=== PATIENT | female | born 1935 | race Caucasian/White ===

== ENCOUNTER 2024-05-18 15:06 | Inpatient (IN) | payer MEDICARE, MEDICAID ==
[~2024-05-18] VITALS: Ht 157.5 cm; Wt 72.0 kg
[2024-05-18 16:54] LABS: BASOPHILS % (AUTO) 0.5 % (0-1); EOSINOPHILS # (AUTO) 0.1 X10'3 (0-0.9); EOSINOPHILS % (AUTO) 1.7 % (0-6); HEMATOCRIT 34.2 % (35.0-45.0); HEMOGLOBIN 11.7 g/dl (12.0-16.0); LYMPHOCYTES # (AUTO) 1.1 X10'3 (1.1-4.8); LYMPHOCYTES % (AUTO) 16.2 % (21-51); MEAN CORPUSCULAR HEMOGLOBIN 32.3 PG (27.0-31.0); MEAN CORPUSCULAR HGB CONC 34.1 g/dL (33.0-36.5); MEAN CORPUSCULAR VOLUME 94.8 FL (78-98); MEAN PLATELET VOLUME 7.7 FL (7.4-10.4); MONOCYTES # (AUTO) 0.5 X10'3 (0-0.9); MONOCYTES % (AUTO) 7.1 % (2-12); NEUTROPHILS # (AUTO) 5.3 X10'3 (1.8-7.7); NEUTROPHILS % (AUTO) 74.5 % (42-75); PLATELET COUNT 225 X10'3 (140-440); RED BLOOD COUNT 3.61 X10'6 (4.20-5.60); RED CELL DISTRIBUTION WIDTH 14.5 % (11.5-14.5); WHITE BLOOD COUNT 7.1 X10'3 (4.5-11.0)
[2024-05-18 17:11] LABS: ALANINE AMINOTRANSFERASE 19 U/L (12-78); ALBUMIN 3.3 G/DL (3.4-5.0); ALBUMIN/GLOBULIN RATIO 0.9 (1.1-1.5); ALKALINE PHOSPHATASE 101 IU/L (46-116); ANION GAP 9 (8-16); ASPARTATE AMINO TRANSFERASE 18 U/L (10-37); BILIRUBIN,TOTAL 0.6 MG/DL (0.1-1.0); BLOOD UREA NITROGEN 24 MG/DL (7-18); BUN/CREATININE RATIO 22.4 (10.0-20.0); CHLORIDE 105 MMOL/L (99-107); CREATININE 1.07 MG/DL (0.40-0.90); GLUCOSE 138 MG/DL (70-104); POTASSIUM 4.1 MMOL/L (3.5-5.1); SODIUM 139 MMOL/L (135-145); TOTAL CARBON DIOXIDE 25.1 MMOL/L (24-32); TOTAL PROTEIN 6.8 G/DL (6.4-8.2); eCRCL 28 ML/MIN; eGFR 48 ML/MIN
[2024-05-18 17:18] LABS: MAGNESIUM 1.9 MG/DL (1.5-2.4); PRO BRAIN NATRIURETIC PEPTIDE 467 PG/ML (0-450)
[2024-05-18 18:06] LABS: BILIRUBIN,URINE NEGATIVE (Neg); CLARITY,URINE CLOUDY (Clear); COLOR,URINE STRAW (Yellow); GLUCOSE, URINE NEGATIVE (Neg); KETONES,URINE NEGATIVE (Neg); LEUKOCYTE ESTERASE ,URINE SMALL (Neg); NITRITES, URINE NEGATIVE (Neg); OCCULT BLOOD,URINE NEGATIVE (Neg); PROTEIN,URINE NEGATIVE (Neg); UROBILINOGEN,URINE 0.2 E.U/dL (0.2-1.0)
[2024-05-18 18:12] LABS: UA COLLECTION TYPE NON-SPECIFIED
[2024-05-18 18:13] LABS: BACTERIA,URINE 4+ /HPF (Neg); MUCUS STRANDS MODERATE /LPF (Neg); RBC,URINE 0-2 /HPF (0-2); SQUAMOUS EPITHELIAL CELL,UR MANY /LPF (FEW)
[2024-05-18] MEDS: CefTRIAXone 2gm/D5W 50ml BAG 50 ML IV ONE (19:16)
[2024-05-18] MEDS: azithromycin/NS 500mg/250ml 250 ML IV ONE (19:16)
[2024-05-18] MEDS ORDERED: magnesium Cl slow-release 64mg tablet PO PRN (22:10)
[2024-05-18] MEDS ORDERED: ipratropium/albuterol 3ml nebule NEB PRN (22:10)
[2024-05-18] MEDS ORDERED: ondansetron/PF 4mg/2ml inj IV PRN (22:10)
[2024-05-18] MEDS ORDERED: magnesium sulf-water 2g/50mL 50 ML IV PRN (22:10)
[2024-05-18] MEDS ORDERED: magnesium sulf-water 4G/100mL 100 ML IV PRN (22:10)
[2024-05-18] MEDS ORDERED: potassium Cl 40MEQ/1/2NS 520ml 520 ML IV PRN (22:10)
[2024-05-18] MEDS ORDERED: acetaminophen 325mg tablet PO PRN (22:10)
[2024-05-18] MEDS ORDERED: mag hydrox/Alum hydrox/simeth 30ml oral suspension PO PRN (22:10)
[2024-05-18] MEDS ORDERED: magnesium hydroxide 30ml (MOM) UD suspension PO PRN (22:10)
[2024-05-18] MEDS ORDERED: potassium Cl 20 mEq SR tablet PO PRN ×2 (22:10)
[2024-05-18] MEDS ORDERED: ANAS1TAB10 (22:18)
[2024-05-18] MEDS ORDERED: OXYB5TAB21 PO (22:18)
[2024-05-18] MEDS: ipratropium/albuterol 3ml nebule NEB SCH (22:55)
[2024-05-18 22:57] VITALS: PULSE 59; RESP 17; O2SAT 99
[2024-05-18 23:03] VITALS: PULSE 64; RESP 16
[2024-05-18 23:30] VITALS: BP 135/47; PULSE 67; RESP 18; RESP 23; TEMP 97.9; O2SAT 95; O2SAT 97
[2024-05-19] VITALS (17 sets, daily range): BP systolic 105–114; BP diastolic 51–86; PULSE 56–98; RESP 16–20; TEMP 97.4–98.3; O2SAT 94–100
[2024-05-19] MEDS: methylPREDNISolone sod succ 125mg/2ml vial IV SCH (00:33)
[2024-05-19] MEDS: docusate sod 100mg capsule PO SCH (08:00)
[2024-05-19] MEDS: K and/or MAG REPLACEMENT MC SCH (08:00)
[2024-05-19 08:01] LABS: BASOPHILS % (AUTO) 0.1 % (0-1); EOSINOPHILS % (AUTO) 0.1 % (0-6); HEMATOCRIT 34.5 % (35.0-45.0); HEMOGLOBIN 11.6 g/dl (12.0-16.0); LYMPHOCYTES # (AUTO) 0.5 X10'3 (1.1-4.8); LYMPHOCYTES % (AUTO) 11.2 % (21-51); MEAN CORPUSCULAR HGB CONC 33.6 g/dL (33.0-36.5); MEAN CORPUSCULAR VOLUME 95.3 FL (78-98); MEAN PLATELET VOLUME 7.7 FL (7.4-10.4); MONOCYTES % (AUTO) 0.8 % (2-12); NEUTROPHILS # (AUTO) 4.2 X10'3 (1.8-7.7); NEUTROPHILS % (AUTO) 87.8 % (42-75); PLATELET COUNT 215 X10'3 (140-440); RED BLOOD COUNT 3.62 X10'6 (4.20-5.60); RED CELL DISTRIBUTION WIDTH 14.5 % (11.5-14.5); WHITE BLOOD COUNT 4.8 X10'3 (4.5-11.0)
[2024-05-19 08:27] LABS: ALANINE AMINOTRANSFERASE 16 U/L (12-78); ALBUMIN 3.2 G/DL (3.4-5.0); ALBUMIN/GLOBULIN RATIO 0.8 (1.1-1.5); ALKALINE PHOSPHATASE 102 IU/L (46-116); ANION GAP 11 (8-16); ASPARTATE AMINO TRANSFERASE 18 U/L (10-37); BILIRUBIN,TOTAL 0.4 MG/DL (0.1-1.0); BLOOD UREA NITROGEN 26 MG/DL (7-18); BUN/CREATININE RATIO 24.1 (10.0-20.0); CALCIUM 8.7 MG/DL (8.5-10.1); CHLORIDE 105 MMOL/L (99-107); CREATININE 1.08 MG/DL (0.40-0.90); GLUCOSE 215 MG/DL (70-104); POTASSIUM 4.5 MMOL/L (3.5-5.1); SODIUM 140 MMOL/L (135-145); TOTAL CARBON DIOXIDE 23.8 MMOL/L (24-32); TOTAL PROTEIN 7.2 G/DL (6.4-8.2); eCRCL 28 ML/MIN; eGFR 48 ML/MIN
[2024-05-19] MEDS: CefTRIAXone/D5W-Rocephin 1gm 50 ML IV SCH (09:25)
[2024-05-19] MEDS: oxybutynin 5mg tablet PO SCH (09:27)
[2024-05-19] MEDS: heparin, porcine 5000 units/ml vial SQ SCH (09:27)
[2024-05-19] MEDS: azithromycin/NS 500mg/250ml 250 ML IV SCH (10:41)
[2024-05-19] MEDS: furosemide 40mg/4ml inj IV ONE (10:43)
[2024-05-19] MEDS: anastrozole 1 MG tablet PO SCH (11:09)
[2024-05-19] MEDS ORDERED: albuterol 1.25 MG/3 ML (1/2 strength) nebule NEB PRN (19:15)
[2024-05-19] MEDS: furosemide 20 MG/2 ML vial IV SCH (21:57)
[2024-05-19] MEDS: guaiFENesin ER 600mg tablet PO SCH (21:57)
[2024-05-20] VITALS (14 sets, daily range): BP systolic 104–122; BP diastolic 40–84; PULSE 68–97; RESP 16–20; TEMP 97.5–98.7; O2SAT 93–100
[2024-05-20 05:39] LABS: BASOPHILS % (AUTO) 0.3 % (0-1); EOSINOPHILS % (AUTO) 0 % (0-6); HEMATOCRIT 32.5 % (35.0-45.0); HEMOGLOBIN 10.9 g/dl (12.0-16.0); LYMPHOCYTES # (AUTO) 0.4 X10'3 (1.1-4.8); LYMPHOCYTES % (AUTO) 4.3 % (21-51); MEAN CORPUSCULAR HEMOGLOBIN 32.1 PG (27.0-31.0); MEAN CORPUSCULAR HGB CONC 33.5 g/dL (33.0-36.5); MEAN CORPUSCULAR VOLUME 95.6 FL (78-98); MEAN PLATELET VOLUME 7.9 FL (7.4-10.4); MONOCYTES # (AUTO) 0.3 X10'3 (0-0.9); MONOCYTES % (AUTO) 2.8 % (2-12); NEUTROPHILS # (AUTO) 9.1 X10'3 (1.8-7.7); NEUTROPHILS % (AUTO) 92.6 % (42-75); PLATELET COUNT 210 X10'3 (140-440); RED CELL DISTRIBUTION WIDTH 14.5 % (11.5-14.5); WHITE BLOOD COUNT 9.8 X10'3 (4.5-11.0)
[2024-05-20 06:04] LABS: ALANINE AMINOTRANSFERASE 16 U/L (12-78); ALBUMIN 3.4 G/DL (3.4-5.0); ALKALINE PHOSPHATASE 99 IU/L (46-116); ANION GAP 15 (8-16); ASPARTATE AMINO TRANSFERASE 15 U/L (10-37); BILIRUBIN,TOTAL 0.3 MG/DL (0.1-1.0); BLOOD UREA NITROGEN 39 MG/DL (7-18); BUN/CREATININE RATIO 25.7 (10.0-20.0); CALCIUM 8.9 MG/DL (8.5-10.1); CHLORIDE 101 MMOL/L (99-107); CREATININE 1.52 MG/DL (0.40-0.90); GLUCOSE 291 MG/DL (70-104); MAGNESIUM 1.9 MG/DL (1.5-2.4); SODIUM 138 MMOL/L (135-145); TOTAL CARBON DIOXIDE 22.1 MMOL/L (24-32); TOTAL PROTEIN 6.9 G/DL (6.4-8.2); eCRCL 20 ML/MIN; eGFR 32 ML/MIN
[2024-05-20 06:05] LABS: POTASSIUM 3.8 MMOL/L (3.5-5.1)
[2024-05-20] MEDS: methylPREDNISolone sod succ 125mg/2ml vial IV SCH (09:25)
[2024-05-20] MEDS: furosemide 20MG tablet PO SCH (09:25)
[2024-05-20] MEDS: acetaminophen 325mg tablet PO PRN (14:06)
[2024-05-20] MEDS: LORazepam 0.5 MG tablet PO ONE (21:34)
[2024-05-21 06:00] VITALS: BP 156/63; PULSE 66; RESP 18; TEMP 97.4; O2SAT 98
[2024-05-21 06:17] LABS: BASOPHILS % (AUTO) 0.1 % (0-1); EOSINOPHILS % (AUTO) 0 % (0-6); HEMATOCRIT 34.7 % (35.0-45.0); HEMOGLOBIN 11.6 g/dl (12.0-16.0); LYMPHOCYTES # (AUTO) 0.5 X10'3 (1.1-4.8); LYMPHOCYTES % (AUTO) 3.7 % (21-51); MEAN CORPUSCULAR HEMOGLOBIN 31.9 PG (27.0-31.0); MEAN CORPUSCULAR HGB CONC 33.5 g/dL (33.0-36.5); MEAN CORPUSCULAR VOLUME 95.2 FL (78-98); MEAN PLATELET VOLUME 8.1 FL (7.4-10.4); MONOCYTES # (AUTO) 0.3 X10'3 (0-0.9); MONOCYTES % (AUTO) 2.1 % (2-12); NEUTROPHILS # (AUTO) 13.2 X10'3 (1.8-7.7); NEUTROPHILS % (AUTO) 94.1 % (42-75); PLATELET COUNT 228 X10'3 (140-440); RED BLOOD COUNT 3.65 X10'6 (4.20-5.60); RED CELL DISTRIBUTION WIDTH 14.8 % (11.5-14.5)
[2024-05-21 06:41] LABS: ALANINE AMINOTRANSFERASE 18 U/L (12-78); ALBUMIN 3.7 G/DL (3.4-5.0); ALBUMIN/GLOBULIN RATIO 1.1 (1.1-1.5); ALKALINE PHOSPHATASE 98 IU/L (46-116); ANION GAP 13 (8-16); ASPARTATE AMINO TRANSFERASE 17 U/L (10-37); BILIRUBIN,TOTAL 0.4 MG/DL (0.1-1.0); BLOOD UREA NITROGEN 48 MG/DL (7-18); BUN/CREATININE RATIO 34.3 (10.0-20.0); CALCIUM 8.7 MG/DL (8.5-10.1); CHLORIDE 102 MMOL/L (99-107); GLUCOSE 153 MG/DL (70-104); MAGNESIUM 2.1 MG/DL (1.5-2.4); POTASSIUM 3.9 MMOL/L (3.5-5.1); SODIUM 139 MMOL/L (135-145); TOTAL PROTEIN 7.1 G/DL (6.4-8.2); eCRCL 22 ML/MIN; eGFR 35 ML/MIN
[2024-05-21 07:46] VITALS: PULSE 85; PULSE 97; RESP 18; O2SAT 97
[2024-05-21 08:00] VITALS: RESP 18; O2SAT 98
[2024-05-21 10:00] VITALS: BP 148/64; PULSE 76; RESP 20; TEMP 97.8; O2SAT 93
[2024-05-21 12:11] VITALS: PULSE 85; PULSE 97; RESP 18; O2SAT 97
[2024-05-21] MEDS ORDERED: FURO20TA4 PO (13:48)
[2024-05-21] MEDS ORDERED: DOXY-243 PO (13:48)
[2024-05-21] MEDS ORDERED: PRED10TA23 PO (13:48)
== END 2024-05-21 14:39 | disposition home or self-care (01) | DRG 190 ==
LOC: EDBD 15:07 → ER 15:07 → ED HOLD 20:23 → SUR 3N 23:20
PROVIDERS: ADMIT Internal Medicine Critical Care Medicine; ATTEND Internal Medicine
DX: J44.1 Chronic obstructive pulmonary disease with (acute) exacerbation (principal); J15.69 Pneumonia due to other Gram-negative bacteria; J15.9 Unspecified bacterial pneumonia; N17.9 Acute kidney failure, unspecified; N39.0 Urinary tract infection, site not specified; I50.9 Heart failure, unspecified; Z20.822 Contact with and (suspected) exposure to COVID-19; J44.0 Chronic obstructive pulmonary disease with (acute) lower respiratory infection; Z66 Do not resuscitate; J84.10 Pulmonary fibrosis, unspecified; T50.2X5A Adverse effect of carbonic-anhydrase inhibitors, benzothiadiazides and other diuretics, initial encounter; G47.33 Obstructive sleep apnea (adult) (pediatric); D64.9 Anemia, unspecified; Z85.3 Personal history of malignant neoplasm of breast; Z90.5 Acquired absence of kidney; Z85.528 Personal history of other malignant neoplasm of kidney; Y92.89 Other specified places as the place of occurrence of the external cause
CPT/HCPCS: 36415; 71045; 71250; 80053; 81001; 82570; 83036; 83605; 83735; 83880; 83930; 83935; 84145; 84300; 84484; 85025; 87040; 87081; 87207; 87502; 87503; 87811; 93005; 93308; 94640; 94760; 96365; 96368; 99285; G0378; J0456; J0696; J1644; J1940; J2919; J7040